=== PATIENT | female | born 1980 | race Caucasian/White ===

== ENCOUNTER 2017-07-17 03:55 | Emergency (ER) | payer SELFPAY ==
--- NOTE | 2017-07-19 15:05 | EDM.PDOC ---
ED HPI GENERAL MEDICAL PROBLEM - General Stated Complaint: DIDN'T WANT TO BE SEEN Time Seen by Provider: 07/17/17 04:00 Source of Information: Reports: Patient History Limitations: Reports: No Limitations - Related Data Allergies Allergy/AdvReac Type Severity Reaction Status Date / Time Unable to Assess Allergy Unverified 07/17/17 16:12 Home Meds: Home Meds . [Unable to Verify Home Med List] 07/17/17 [History] ED ROS GENERAL - Review of Systems Review Of Systems: See Below Constitutional: Reports: No Symptoms HEENT: Reports: No Symptoms Respiratory: Reports: No Symptoms Cardiovascular: Reports: No Symptoms Endocrine: Reports: No Symptoms GI/Abdominal: Reports: No Symptoms : Reports: No Symptoms Musculoskeletal: Reports: No Symptoms Skin: Reports: No Symptoms Neurological: Reports: No Symptoms Psychiatric: Reports: No Symptoms Hematologic/Lymphatic: Reports: No Symptoms Immunologic: Reports: No Symptoms ED EXAM, GENERAL - Physical Exam Exam: Not Obtained Departure - Departure Time of Disposition: 15:02 Disposition: Left Without Being Seen 07 Condition: Good Clinical Impression: Unknown cause of injury - Discharge Information Referrals: PCP,Unobtain [Ordering Only Provider] - - Problem List Review Problem List Initiated/Reviewed/Updated: Yes - Assessment/Plan Assessment:: Patient left and eloped without being seen. She did not allow treatment or sign for treatment. Plan: No plan noted.
== END 2017-07-17 04:00 | disposition left against medical advice (07) ==
LOC: CC.ED 03:55
DX: Z53.21 Procedure and treatment not carried out due to patient leaving prior to being seen by health care provider (principal)

== ENCOUNTER 2019-01-14 23:20 | Emergency (ER) | payer SELFPAY ==
--- NOTE | 2019-01-14 23:49 | EDM.PDOC ---
ED HPI GENERAL MEDICAL PROBLEM - General Chief Complaint: Head Injury Stated Complaint: FELL DOWN AND HIT HEAD Time Seen by Provider: 01/14/19 23:30 Source of Information: Reports: Patient, EMS History Limitations: Reports: Intoxication - History of Present Illness INITIAL COMMENTS - FREE TEXT/NARRATIVE: Patient presents to ER per EMS after "passing out" at the bar. Patient fell forward and hit her head, sustained a small laceration to the right side of her head. Was alert on EMS arrival. Unsure if loss of consciousness. Patient uncooperative, does not know events of fall. Restless, argumentative. Does follow commands, answers questions when asked. States "has had plenty to drink but that is not unusual for her". Relates had a recent break up with her boyfriend. Denies a headache. No neck pain. No pain in chest, shoulders, abdomen. No nausea. "unsure if blurred vision as I'm drunk". 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 [No Known Home Meds] 01/14/19 [History] ED ROS GENERAL - Review of Systems Review Of Systems: See Below Constitutional: Denies: Fever, Chills, Malaise, Weakness, Decreased Appetite HEENT: Reports: Vision Change. Denies: Ear Pain, Nosebleed, Rhinitis, Throat Pain Respiratory: Denies: Shortness of Breath, Cough Cardiovascular: Denies: Chest Pain, Edema, Lightheadedness Endocrine: Denies: Fatigue GI/Abdominal: Denies: Abdominal Pain, Nausea, Vomiting : Reports: No Symptoms Musculoskeletal: Denies: Neck Pain Skin: Reports: Wound Neurological: Denies: Headache, Seizure, Difficulty Walking, Weakness ED EXAM, HEAD INJURY - Physical Exam Exam: See Below Exam Limited By: Intoxication General Appearance: Alert, WD/WN, Anxious Head: Normocephalic, Scalp Lacerations (right parietal region), Scalp Hematoma Nexus Criteria: Evidence of Intoxication. No: Posterior, Midline Cervical Tenderness Eyes: Bilateral Eye: PERRL Ears: Normal External Exam, Normal TMs Nose: Normal Inspection, Normal Mucousa, No Blood Throat/Mouth: Normal Inspection, Normal Oropharynx Neck: Non-Tender, Other (c-collar intact) Respiratory: No Respiratory Distress, Lungs Clear, Normal Breath Sounds Cardiovascular: Regular Rate, Rhythm GI/Abdominal Exam: Normal Bowel Sounds, Soft, Non-Tender Back Exam: Normal Inspection, Full Range of Motion Extremities: Normal Inspection, Normal Capillary Refill Neurologic: Other (intoxicated, oriented. ) - Yanira Coma Score Best Eye Response (Yanira): (4) Open Spontaneously Best Verbal Response (Yanira): (5) Oriented Best Motor Response (Yanira): (6) Obeys Commands ED LACERATION/WOUND & MARY ANN PROC - Laceration/Wound Repair Right Head Lac/wound length in cm: 1 Appearance: Superficial, Linear Skin Prep: Other (cj-clecata) Exploration/Debridement/Repair: Wound Explored Closed with: Ag (2 ag applied) Complications: No Course - Vital Signs Last Recorded V/S: Last Vital Signs Temp 96.7 F 01/15/19 00:39 Pulse 81 01/15/19 00:39 Resp 20 01/15/19 00:39 BP 121/81 01/15/19 00:39 Pulse Ox 99 01/15/19 00:39 - Orders/Labs/Meds Orders: Active Orders 24 hr Category Date Time Status Cervical Spine wo Cont [CT] Stat Exams 01/14/19 23:43 Taken Head wo Cont [CT] Stat Exams 01/14/19 23:43 Taken - Re-Assessments/Exams Free Text/Narrative Re-Assessment/Exam: 01/15/19 01:04 Patient has been restless. CT scan of head and neck negative. C-collar removed per nurse. 01/15/19 01:04 Had discussion with family while waiting. Mother concerned about patient's intoxication and frequent drinking. Did give them a card for Ruma Long. Will discuss options with her myself on Wednesday as to what may be available for patient if is cooperative with this. Departure - Departure Time of Disposition: 01:06 Disposition: Home, Self-Care 01 Clinical Impression: Laceration of head - Discharge Information *PRESCRIPTION DRUG MONITORING PROGRAM REVIEWED*: No *COPY OF PRESCRIPTION DRUG MONITORING REPORT IN PATIENT ZULMA: No Instructions: Laceration Care, Adult Forms: ED Department Discharge Additional Instructions: 1. Rest 2. Keep wound to head clean and dry as able. 3. Remove ag in 5 days 4. Call with any questions or concerns. - My Orders Last 24 Hours: My Active Orders 01/14/19 23:43 Cervical Spine wo Cont [CT] Stat Head wo Cont [CT] Stat - Assessment/Plan Last 24 Hours: My Active Orders 01/14/19 23:43 Cervical Spine wo Cont [CT] Stat Head wo Cont [CT] Stat
== END 2019-01-15 01:15 | disposition home or self-care (01) ==
LOC: CC.ED 23:20
DX: S01.01XA Laceration without foreign body of scalp, initial encounter (principal); Z88.5 Allergy status to narcotic agent; W18.30XA Fall on same level, unspecified, initial encounter; F10.10 Alcohol abuse, uncomplicated
CPT/HCPCS: 12001; 70450; 72125; 99284-25

== ENCOUNTER 2019-10-22 22:06 | Inpatient (IN) | payer MEDICARE ==
[2019-10-22] MEDS ORDERED: Sodium Chloride 0.9% 1,000 ML IV ONE (22:18)
--- NOTE | 2019-10-22 22:29 | EDM.PDOCBH ---
ED HPI GENERAL MEDICAL PROBLEM - General Chief Complaint: Behavioral/Psych Stated Complaint: attempted suicide, took 5-6 Zaleplon Time Seen by Provider: 10/22/19 22:19 Source of Information: Reports: Patient, EMS History Limitations: Reports: No Limitations - History of Present Illness INITIAL COMMENTS - FREE TEXT/NARRATIVE: in with c/o OD on Zaleplon 10mg tabs #5 to 6 tabs just prior to arrival, pt also has been drinking alcohol, pt advised she is tired of being a failure and wants to , she advised she has attempted to ill herself before, does not know when is not very cooperative, no cp or sob, no abd pain, no nv. 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 [No Known Home Meds] 01/14/19 [History] Past Medical History Psychiatric History: Reports: Anxiety, Depression, PTSD Social & Family History - Family History Cardiac: Reports: Hypertension - Tobacco Use Smoking Status *Q: Current Every Day Smoker - Alcohol Use Alcohol Use Frequency: Weekly - Recreational Drug Use Recreational Drug Use: No - Living Situation & Occupation Living situation: Reports: with Family ED ROS GENERAL - Review of Systems Review Of Systems: See Below Constitutional: Reports: No Symptoms. Denies: Fever, Chills HEENT: Reports: No Symptoms Respiratory: Reports: No Symptoms. Denies: Shortness of Breath Cardiovascular: Reports: No Symptoms. Denies: Chest Pain Endocrine: Reports: No Symptoms GI/Abdominal: Reports: No Symptoms. Denies: Abdominal Pain, Nausea, Vomiting : Reports: No Symptoms Musculoskeletal: Reports: No Symptoms. Denies: Neck Pain, Back Pain Skin: Reports: No Symptoms Neurological: Reports: No Symptoms. Denies: Confusion, Dizziness, Headache Psychiatric: Reports: Depression, Suicidal Ideation. Denies: Homicidal Ideation Hematologic/Lymphatic: Reports: No Symptoms ED EXAM, BEHAVIORAL HEALTH - Physical Exam Exam: See Below Exam Limited By: No Limitations General Appearance: Alert, WD/WN, No Apparent Distress Ears: Normal External Exam Nose: Normal Inspection Throat/Mouth: Normal Inspection, Normal Lips, Normal Voice, No Airway Compromise Head: Atraumatic, Normocephalic Neck: Normal Inspection, Supple, Non-Tender, Full Range of Motion Respiratory/Chest: No Respiratory Distress, Lungs Clear, Normal Breath Sounds, Chest Non-Tender Cardiovascular: Normal Peripheral Pulses, Regular Rate, Rhythm, No Murmur GI/Abdominal: Soft, Non-Tender Back Exam: Normal Inspection, Full Range of Motion Extremities: Normal Inspection, Normal Range of Motion, Non-Tender, Normal Capillary Refill Neurological: Alert, Normal Mood/Affect, Normal Cognition, No Motor/Sensory Deficits, Oriented x 3 Psychiatric: Alert, Oriented, Depressed Mood, Suicidal Plan (Attempted overdose with sleeping medicine as above), Suicidal Thoughts. No: Homicidal Thoughts Skin Exam: Warm, Dry, Intact, Normal color COURSE, BEHAVIORAL HEALTH COMP - Course Vital Signs: Last Vital Signs Temp 36.9 C 10/22/19 22:10 Pulse 88 10/22/19 22:10 Resp 15 10/22/19 22:10 BP 118/85 10/22/19 22:10 Pulse Ox 99 10/22/19 22:10 Orders, Labs, Meds: Active Orders 24 hr Category Date Time Status Patient Status Manage Transfer [TRANSFER] Routine ADT 10/22/19 22:43 Active Patient Status [ADT] Routine ADT 10/22/19 22:44 Ordered Bedrest Bathroom Privileges [RC] ASDIRECTED Care 10/22/19 22:44 Ordered Cardiac Monitoring [RC] . DIRECTED Care 10/22/19 22:27 Active Cardiac Monitoring [RC] CONTINUOUS Care 10/22/19 22:45 Ordered Height and Weight [RC] UPON Care 10/22/19 22:44 Ordered Intake and Output [RC] QSHIFT Care 10/22/19 22:45 Ordered Oxygen Therapy [RC] PRN Care 10/22/19 22:44 Ordered Pulse Oximetry [RC] CONTINUOUS Care 10/22/19 22:45 Ordered VTE/DVT Education [RC] PER UNIT ROUTINE Care 10/22/19 22:44 Ordered Vital Signs [RC] Q4H Care 10/22/19 22:44 Ordered Regular Diet [DIET] Diet 10/23/19 Breakfast Ordered ACETAMINOPHEN [REF] Stat Lab 10/22/19 22:35 Received COMPREHENSIVE METABOLIC PN,CMP [CHEM] Stat Lab 10/22/19 22:35 Received DRUG SCREEN URINE BIORAD [URCHEM] Stat Lab 10/22/19 22:25 Ordered ETHANOL BLOOD MEDICAL [CHEM] Stat Lab 10/22/19 22:35 Received HCG QUALITATIVE,SERUM [CHEM] Stat Lab 10/22/19 22:35 Received SALICYLATE [REF] Stat Lab 10/22/19 22:35 Received TROPONIN I [CHEM] Stat Lab 10/22/19 22:35 Received UA RFX PAULA AND CULT IF INDIC [URIN] Stat Lab 10/22/19 22:25 Ordered Sodium Chloride 0.9% [Normal Saline] 1,000 ml Med 10/22/19 22:18 Active IV .BOLUS Sodium Chloride 0.9% [Normal Saline] 1,000 ml Med 10/22/19 22:45 Ordered IV ASDIRECTED Resuscitation Status Routine Resus Stat 10/22/19 22:44 Ordered EKG 12 Lead [EK] Routine Ther 10/22/19 22:26 Ordered Medication Orders Sodium Chloride (Normal Saline) 1,000 mls @ 999 mls/hr IV .BOLUS ONE Stop: 10/22/19 23:18 Last Admin: 10/22/19 22:37 Dose: 999 mls/hr Sodium Chloride (Normal Saline) 1,000 mls @ 100 mls/hr IV ASDIRECTED CARLOTTA Laboratory Tests 10/22/19 Range/Units 22:35 WBC 3.9 L (5.0-10.0) 10^3/uL RBC 3.95 L (4.00-5.50) 10^6/uL Hgb 13.0 (12.0-16.0) g/dL Hct 36.7 L (37.0-47.0) % MCV 92.9 (82.0-94.0) fL MCH 32.9 H (27.0-32.0) pg MCHC 35.4 (33.0-38.0) g/dL RDW Coeff of Vikki 12.7 (11.0-15.0) % Plt Count 247 (150-400) 10^3/uL Neut % (Auto) 46.9 (35-85) % Lymph % (Auto) 36.5 (10-55) % Meade % (Auto) 12.2 (0-16) % Eos % (Auto) 4.1 (0-5) % Baso % (Auto) 0.3 (0-3) % Neut # (Auto) 1.81 (1.80-7.00) 10^3/uL Lymph # (Auto) 1.41 (1.00-4.80) 10^3/uL Meade # (Auto) 0.47 (0.00-0.80) 10^3/uL Eos # (Auto) 0.16 (0.00-0.45) 10^3/uL Baso # (Auto) 0.01 10^3/uL Medications Generic Name Dose Route Start Last Admin Trade Name Freq PRN Reason Stop Dose Admin Sodium Chloride 1,000 mls @ 999 mls/hr 10/22/19 22:18 10/22/19 22:37 Normal Saline IV 10/22/19 23:18 999 mls/hr .BOLUS ONE Administration Sodium Chloride 1,000 mls @ 100 mls/hr 10/22/19 22:45 Normal Saline IV ASDIRECTED CARLOTTA Re-Assessment/Re-Exam: The patient was evaluated in the emergency department, the patient had appropriate blood work drawn and is being processed in the lab currently. The patient is awake but sleepy. The roads are very hazardous and most of the roads have been shut down by the state police due to the weather and the patient will be monitored here at this facility overnight and will be transferred in the morning when [facility] and treatment of her psychiatric condition. The patient will have one-on-one observation in the hospital here. Departure - Departure Time of Disposition: 22:41 Disposition: Admitted As Inpatient 66 Condition: Good Clinical Impression: Intentional drug overdose, Acute alcohol intoxication, Suicidal intent, Depressive disorder - Discharge Information *PRESCRIPTION DRUG MONITORING PROGRAM REVIEWED*: Not Applicable *COPY OF PRESCRIPTION DRUG MONITORING REPORT IN PATIENT ZULMA: Not Applicable Forms: ED Department Discharge Sepsis Event Note - Evaluation Sepsis Screening Result: No Definite Risk - Focused Exam Vital Signs: Vital Signs Temp Pulse Resp BP Pulse Ox 10/22/19 22:10 36.9 C 88 15 118/85 99 Date Exam was Performed: 10/22/19 Time Exam was Performed: 22:48 - Problem List & Annotations (1) Acute alcohol intoxication SNOMED Code(s): 72846448, 00190270 Code(s): F10.929 - ALCOHOL USE, UNSPECIFIED WITH INTOXICATION, UNSPECIFIED Status: Acute Priority: High Qualifiers: Complication of substance-induced condition: with unspecified complication Qualified Code(s): F10.929 - Alcohol use, unspecified with intoxication, unspecified (2) Depressive disorder SNOMED Code(s): 47004144 Code(s): F32.9 - MAJOR DEPRESSIVE DISORDER, SINGLE EPISODE, UNSPECIFIED Status: Acute Priority: High (3) Intentional drug overdose SNOMED Code(s): 45569566 Code(s): T50.902A - POISONING BY UNSP DRUG/MEDS/BIOL SUBST, SELF-HARM, INIT Status: Acute Priority: High Qualifiers: Encounter type: initial encounter Qualified Code(s): T50.902A - Poisoning by unspecified drugs, medicaments and biological substances, intentional self- harm, initial encounter (4) Suicidal intent SNOMED Code(s): 709291726, 354822696 Code(s): R45.851 - SUICIDAL IDEATIONS Status: Acute Priority: High - Problem List Review Problem List Initiated/Reviewed/Updated: Yes - My Orders Last 24 Hours: My Active Orders 10/22/19 22:18 Sodium Chloride 0.9% [Normal Saline] 1,000 ml IV .BOLUS 10/22/19 22:25 DRUG SCREEN URINE BIORAD [URCHEM] Stat UA RFX PAULA AND CULT IF INDIC [URIN] Stat 10/22/19 22:26 EKG 12 Lead [EK] Routine 10/22/19 22:27 Cardiac Monitoring [RC] . DIRECTED 10/22/19 22:35 ACETAMINOPHEN [REF] Stat COMPREHENSIVE METABOLIC PN,CMP [CHEM] Stat ETHANOL BLOOD MEDICAL [CHEM] Stat HCG QUALITATIVE,SERUM [CHEM] Stat SALICYLATE [REF] Stat TROPONIN I [CHEM] Stat 10/22/19 22:43 Patient Status Manage Transfer [TRANSFER] Routine 10/22/19 22:44 Patient Status [ADT] Routine Bedrest Bathroom Privileges [RC] ASDIRECTED Height and Weight [RC] UPON Oxygen Therapy [RC] PRN VTE/DVT Education [RC] PER UNIT ROUTINE Vital Signs [RC] Q4H Resuscitation Status Routine 10/22/19 22:45 Cardiac Monitoring [RC] CONTINUOUS Intake and Output [RC] QSHIFT Pulse Oximetry [RC] CONTINUOUS Sodium Chloride 0.9% [Normal Saline] 1,000 ml IV ASDIRECTED 10/23/19 Breakfast Regular Diet [DIET] - Assessment/Plan Admission H&P: Please use this note as an admission H&P Last 24 Hours: My Active Orders 10/22/19 22:18 Sodium Chloride 0.9% [Normal Saline] 1,000 ml IV .BOLUS 10/22/19 22:25 DRUG SCREEN URINE BIORAD [URCHEM] Stat UA RFX PAULA AND CULT IF INDIC [URIN] Stat 10/22/19 22:26 EKG 12 Lead [EK] Routine 10/22/19 22:27 Cardiac Monitoring [RC] . DIRECTED 10/22/19 22:35 ACETAMINOPHEN [REF] Stat COMPREHENSIVE METABOLIC PN,CMP [CHEM] Stat ETHANOL BLOOD MEDICAL [CHEM] Stat HCG QUALITATIVE,SERUM [CHEM] Stat SALICYLATE [REF] Stat TROPONIN I [CHEM] Stat 10/22/19 22:43 Patient Status Manage Transfer [TRANSFER] Routine 10/22/19 22:44 Patient Status [ADT] Routine Bedrest Bathroom Privileges [RC] ASDIRECTED Height and Weight [RC] UPON Oxygen Therapy [RC] PRN VTE/DVT Education [RC] PER UNIT ROUTINE Vital Signs [RC] Q4H Resuscitation Status Routine 10/22/19 22:45 Cardiac Monitoring [RC] CONTINUOUS Intake and Output [RC] QSHIFT Pulse Oximetry [RC] CONTINUOUS Sodium Chloride 0.9% [Normal Saline] 1,000 ml IV ASDIRECTED 10/23/19 Breakfast Regular Diet [DIET] Plan: The patient will be monitored at the hospital with one-to-one observation and cardiac monitoring along with pulse oximetry. Arrangements will be made to send to the [facility] in the morning once the roads are clear and open. The patient will have an IV of normal saline at 100 mL an hour. As the patient will be continuously monitored changes will be made to her treatment plan as needed
[2019-10-22 22:57] LABS: CHLORIDE,CL 106 mEq/L (98-106); SODIUM,NA 146 mEq/L (136-145)
[2019-10-23] MEDS: Sodium Chloride 0.9% 1,000 ML IV SCH ×2 (00:05→09:22)
[2019-10-23] MEDS: Ondansetron 4 MG/2 ML SDV IVPUSH PRN ×2 (13:09→21:32)
[2019-10-23] MEDS ORDERED: ALPRAZolam 0.25 MG Tab PO PRN ×2 (13:25→13:39)
--- NOTE | 2019-10-23 15:24 | PN ---
DATE: 10/23/2019 S: Hayley is a pleasant 39-year-old female who was admitted to the hospital yesterday by Brett Freeman with concerns of suicidal attempt. She did take Sonata sleeping pill 5 to 6 tablets last night. She was intoxicated at that point in time as well. She does admit to a long history of depression, which she has been working with Ruma aCo and currently on Viibryd, also is taking Xanax for anxiety, Sonata for sleep and also Adderall 4 times a day. She does admit that today that she is feeling a little bit better. She does not have any suicidal thoughts presently at this point in time. She does admit that she was on Viibryd recently started a couple months ago, she is on max dose. She is unsure if this had anything in regard to her thoughts yesterday. She does admit that she had argument with her mother and her boyfriend, which kind of escalated things. She states today that she is feeling a little bit better, again is nauseated. Denies any suicidal ideations or attempts. She does state that she has dealt with depression all her life. Back in 2011, she did have extensive outpatient treatment when she was in outpatient therapy for over 3 months. She states again and again she has seen Ruma Cao who has been trying to work with her through her current symptoms. She states that she does have a bunny at home that does give her some relief. Otherwise, she has no other complaints today. She denies wanting any inpatient treatment at this point in time, she has not noted this to be any benefit for her. She would like to discuss this with Ruma. O: VITAL SIGNS: Blood pressure 125/87, respiratory rate 16, O2 is 100% on room air, pulse 66, and temperature 98 degrees. LABORATORY WORK: Initial laboratory work yesterday did show an alcohol of 0.314; today at 8 o'clock this morning, it was 0.151. She has been getting IV fluids. ASSESSMENT: 1. MAJOR DEPRESSIVE DISORDER. 2. SUICIDAL ATTEMPT. P: I did discuss with Hayley in detail about her current condition. I do not want to admit her to inpatient treatment unless she is open and willing to undergo to one at this point in time, which she agrees upon. We are going to observe her again tonight. I do not feel like going home to her current environment would be of any benefit for her. I did consult with Ruma Cao, who was not in the facility today secondary to the weather, who is willing to evaluate tomorrow morning in the hospital. We will plan on Ruma seeing Hayley in the morning to discuss further treatment options. Of note, Ruma and I did discuss possible dual therapy outpatient treatment in [place], in which she may help with assistance of that tomorrow morning. I discussed with Hayley she is willing to stay in the facility tonight. We will discontinue IV fluids once current liter is finished. We did give Zofran 4 mg every 6 hours as needed for nausea, we will make sure that she is getting her home medications as well. Hayley did agree with the current treatment plan. MARLIN/VIRGILIO /[id number]
[2019-10-23] MEDS ORDERED: ALPRAZolam 0.25 MG Tab **OWN MED PO PRN (19:43)
[2019-10-23] MEDS ORDERED: PRAZOSIN 1 MG PO SCH (20:00)
[2019-10-23] MEDS ORDERED: VIIBRYD 20 MG PO SCH (20:00)
[2019-10-23] MEDS: ALPRAZolam 0.25 MG Tab **OWN MED PO PRN (20:21)
[2019-10-24] MEDS: ALPRAZolam 0.25 MG Tab **OWN MED PO PRN ×2 (02:46→09:43)
[2019-10-24] MEDS: Ondansetron 4 MG/2 ML SDV IVPUSH PRN (07:51)
--- NOTE | 2019-10-24 10:48 | PCM.CONSBH ---
Hx. Present Illness - - General Date of Service: 10/24/19 Admit Problem/Dx: Admission Diagnosis/Problem Admission Diagnosis/Problem Drug overdose Source of Information: Reports: Patient, EMS Notes Reviewed, RN Notes Reviewed - Related Data Allergies/Adverse Reactions: Allergies Allergy/AdvReac Type Severity Reaction Status Date / Time naproxen Allergy Stomach Verified 10/22/19 22:17 Upset Home Medications: Home Meds ALPRAZolam [Xanax] 0.25 mg PO Q6HR PRN 10/22/19 [History] Dextroamphetamine/Amphetamine [Adderall 10 mg Tablet] 10 mg PO QID 10/22/19 [ History] Vilazodone [Viibryd] 40 mg PO DAILY 10/22/19 [History] Zaleplon 1 - 2 tab PO BEDTIME PRN 10/22/19 [History] Prazosin HCl [Prazosin] 1 mg PO BEDTIME 10/23/19 [History] Past Medical Hx - Psychiatric Hx: Reports: Anxiety, ADD, Depression, PTSD Social & Family History - - Tobacco Use Years of Tobacco use: 10 - Alcohol Use Alcohol Use History: Yes Alcohol Use in Last Twelve Months: Yes Alcohol Use Frequency: Reports: Weekly (Alcohol use 3-4 times a week.) Review of Systems - - Review of Systems: Review Of Systems: See Below General: Reports: Fatigue Psychiatric: Reports: Depression Exam - - Exam Exam: See Below (see documentation) - Vital Signs Vital Signs: Last Vital Signs Temp 36.5 C 10/24/19 04:00 Pulse 51 L 10/24/19 04:00 Resp 16 10/24/19 04:00 BP 120/74 10/24/19 04:00 Pulse Ox 100 10/24/19 04:00 - Exam General: Alert, Oriented Psychiatric: Alert, Depressed - [place] I, II, III (1) Acute alcohol intoxication SNOMED Code(s): 60298500, [id number] ICD Code: F10.929 - ALCOHOL USE, UNSPECIFIED WITH INTOXICATION, UNSPECIFIED Status: Acute Priority: High Current Visit: Yes (2) Depressive disorder SNOMED Code(s): 05450960 ICD Code: F32.9 - MAJOR DEPRESSIVE DISORDER, SINGLE EPISODE, UNSPECIFIED Status: Chronic Priority: High Current Visit: Yes - Plan FREE TEXT/NARRATIVE: Patient was admitted on 10/22/19 for alcohol intoxication and suicide attempt by taking 4-5 [place]. When visiting with the patient she reports not knowing how Wednesday night happened. She reports feeling more down lately but denies suicidal ideation prior to Wednesday night however does report having thoughts of not wanting to wake up. Hayley has a history of suicidal ideation and passive wish. Patient reports increased arguing with her mom over the last several weeks and according to Hayley most often both parties have alcohol in their system. Patient reports a strained relationship with her mom and feels stuck because she is living with her mom and mom's boyfriend and has no where else to go. Patient says she has no money to move into her own apartment. Discussed hospitalization with patient but at this time Hayley is refusing inpatient hospitalization. Patient does not meet the criteria for involuntary inpatient hospitalization. Discussed partial hospitalization programs through [facility] in [place], [facility] in [place], and [facility] in [place]. Patient willing to look into partial hospitalization at this time however patient does not want to start until Wednesday October 30, 2019 as she has a for her cousin October. Patient informed [facility] partial hospitalization program may not have any openings at that time. She verbalized understanding. Patient denies suicidal or homicidal ideation, delusions or hallucinations. She is sitting up in her bed in her own clothes. Patient is pleasant and cooperative. Mood is dysphoric. Affect blunted. Speech is clear, coherent, spontaneous, normal rate and volume. Thought process is goal directed, linear, and logical. Judgement/Insight: developmentally appropriate and intact. Attention span and concentration normal. Patient stable to be discharged home. She is to follow up with undersigned week of if she has not been admitted to partial hospitalization program through [facility] in [place]. Discussed recommendations with avionics systems technician provider. - Orders Orders Last 24hrs: Active Orders 24 hr Category Date Time Status ALPRAZolam [Xanax] Med 10/23/19 19:43 Active 0.25 mg PO Q6H PRN Ondansetron [Zofran] Med 10/23/19 12:31 Active 4 mg IVPUSH Q6H PRN Prazosin HCl [Prazosin] Med 10/23/19 20:00 Active 0 mg PO BEDTIME Vilazodone [Viibryd] Med 10/23/19 20:00 Active 0 mg PO BEDTIME Medication Orders Alprazolam (Xanax) 0.25 mg PO Q6H PRN PRN Reason: Anxiety Last Admin: 10/24/19 09:43 Dose: 0.25 mg Admin: 10/24/19 02:46 Dose: 0.25 mg Admin: 10/23/19 20:21 Dose: 0.25 mg Viibryd 20 Mg Tabs * (*Own Med) 0 mg PO BEDTIME [place] Last Admin: 10/23/19 20:21 Dose: 40 mg Prazosin 1 Mg Own (Med) 0 mg PO BEDTIME [place] Last Admin: 10/23/19 20:21 Dose: 1 mg Ondansetron HCl (Zofran) 4 mg IVPUSH Q6H PRN PRN Reason: Nausea Last Admin: 10/24/19 07:51 Dose: 4 mg Admin: 10/23/19 21:32 Dose: 4 mg Admin: 10/23/19 13:09 Dose: 4 mg TeleHealth - TeleHealth Patient Service Facility: [facility]: [facility]
[2019-10-24] MEDS ORDERED: Ibuprofen 200 MG Tab PO ONE (12:30)
[2019-10-24 13:59] LABS: CHLORIDE,CL 108 mEq/L (98-106); SODIUM,NA 143 mEq/L (136-145)
[2019-10-24] MEDS ORDERED: Ondansetron 4 MG Tab.DIS PO PRN (15:56)
== END 2019-10-24 16:05 | disposition home or self-care (01) | DRG 918 ==
LOC: CC.ED 22:06 → CC.MS 22:43 → OBSVTOIN 22:43 → CC.ED 23:07
PROVIDERS: ADMIT Nurse Practitioner; ATTEND Family Medicine
DX: T42.72XA Poisoning by unspecified antiepileptic and sedative-hypnotic drugs, intentional self-harm, initial encounter (principal); T42.6X2A Poisoning by other antiepileptic and sedative-hypnotic drugs, intentional self-harm, initial encounter; F10.129 Alcohol abuse with intoxication, unspecified; F43.10 Post-traumatic stress disorder, unspecified; F32.9 Major depressive disorder, single episode, unspecified; F41.9 Anxiety disorder, unspecified; F17.200 Nicotine dependence, unspecified, uncomplicated; Z88.8 Allergy status to other drugs, medicaments and biological substances; Z79.899 Other long term (current) drug therapy; Z91.5 Personal history of self-harm
CPT/HCPCS: 36415; 74019; 80053; 80305-QW; 81003; 84484; 84703; 85025; 86140; 93005; 99285-25; A9270-GY; G0480; J2405; J7030